=== PATIENT | female | born 2000 | race Caucasian/White ===

== ENCOUNTER → 2021-04-23 15:08 | Outpatient (CLI) | payer MEDICAID, SELFPAY ==
[2021-04-23 15:54] LABS: Absolute Lymphocyte Count 1.55 X10^3/uL (0.83-4.51); Absolute Neutrophil Count 2.4 X10^3/uL (2.0-7.7); Basophil# 0.03 X10^3/uL; Basophil% 0.7 % (0-1); Eosinophil# 0.02 X10^3/uL; Eosinophils% 0.5 % (0-5); Hemoglobin 13.5 g/dL (12.0-15.0); Lymphocyte # 1.55 X10^3/ul (0.83-4.51); Lymphocyte % 37.2 % (19-41); Mean Corp Hgb Conc 33.8 g/dL (32-36); Mean Corpuscular Hgb 30.8 pg (27.0-32.0); Mean Corpuscular Volume 91.1 fL (81-99); Mean Platelet Vol. 9.1 fl (6.2-12.0); Monocyte# 0.22 X10^3/uL; Monocyte% 5.3 % (0-10); NRBC Flagged by Analyzer 0 % (0-5); Neutrophil # 2.35 X10^3/uL (2.7-7.7); Neutrophil % 56.3 % (47-70); Platelet Count 283 K/mm3 (150-450); RBC Distribution Width CV 11.3 % (11.6-14.6); Red Blood Count 4.39 M/mm3 (4.2-5.4); White Blood Count 4.2 K/mm3 (4.4-11.0)
[2021-04-23 16:58] LABS: ALB/GLOB Ratio 1.3 RATIO (0.9-2.4); AST(SGOT) 17 U/L (15-37); Alanine Aminotransfer ALT/SGPT 13 U/L (13-56); Albumin, Serum 4.3 g/dL (3.2-5.0); Alkaline Phosphatase 45 U/L (45-117); Anion Gap 4 (5-15); BUN 12 mg/dL (7-18); BUN/Creat Ratio 18.7 RATIO (10-20); Chloride 106 mmol/L (98-107); Creatinine, Serum 0.64 mg/dL (0.55-1.02); EST Glomerular Filtration Rate 124 mL/min (>60); Est Glom Filt Rate - Afr Amer 150 mL/min (>60); Globulin 3.4 g/dL (2.2-4.2); Glucose 70 mg/dL (74-106); Iron 112 ug/dL (50-170); Iron Binding Capacity,Total 284 ug/dL (250-450); Lipase 120 U/L (73-393); PERCENT IRON SATURATION 39.4 % (15.0-55.0); Potassium 3.5 mmol/L (3.5-5.1); Protein, Total 7.7 g/dL (6.4-8.2); Sodium Level 138 mmol/L (136-145); Thyroid Stim Hormone (TSH) 0.72 uIU/mL (0.358-3.74)
[2021-04-23 20:14] LABS: Vitamin B12 512 pg/mL (211-911)
[2021-04-26 12:09] LABS: Vitamin D 1,25-Dihydroxy 42.1 pg/mL (19.9-79.3)
[2021-04-26 12:48] LABS: ANTINUCLEAR ANTIBODIES DIRECT Negative (Negative)
[2021-05-02 03:07] LABS: Endomysial Antibody IgA Negative (Negative); Immunoglobulin A 285 mg/dL (87-352); Lyme IgG P18 Ab Absent (.); Lyme IgG P23 Ab Absent (.); Lyme IgG P28 Ab Absent (.); Lyme IgG P30 Ab Absent (.); Lyme IgG P39 Ab Absent (.); Lyme IgG P41 Ab Absent (.); Lyme IgG P45 Ab Absent (.); Lyme IgG P58 Ab Absent (.); Lyme IgG P66 Ab Absent (.); Lyme IgG P93 Ab Absent (.); Lyme IgM P23 Ab Absent (.); Lyme IgM P39 Ab Absent (.); Lyme IgM P41 Ab Absent (.)
[2021-05-02 08:16] LABS: H. Pylori Antibody (IgG) 0.18 (0.00-0.79); Lyme IgG WB Interpretation Negative (.); Lyme IgM WB Interpretation Negative (.); t-Transglutaminase IgA <2 U/mL (0-3)
== END ==
PROVIDERS: PCP Internal Medicine; Referring Provider Nurse Practitioner Adult Health; Visit Provider Nurse Practitioner Adult Health
DX: R10.13 Epigastric pain (principal)
CPT/HCPCS: 36415; 80053; 82607; 82652; 82746; 82784; 83516; 83540; 83550; 83690; 84443; 85025; 86038; 86255; 86617; 86677

== ENCOUNTER 2021-05-22 11:53 | Day surgery (SDC) | payer MEDICAID, SELFPAY ==
--- NOTE | 2021-05-22 | IMM_PTH ---
PATIENT: VA DUENAS LOC: EN U#:[id number] AGE/SX: 20/F ROOM: RE05/22/[address]: Dr. Jerry Patel DO : 2000 BED: DIS: 05/22/2021 SPEC #: [id number] RECD: 05/24/21 13:18 STATUS: ERVIN REDesirae #: [id number] [place]: 05/22/21 00:[address]: Jerry Patel DEPT: IMMUNOHISTOCHEMISTRY RECD BY: Karyna Arriaza ENTERED: 05/24/21 13:19 SP TYPE: IMMUNO OTHR DR: Brielle Trejo MD Tissues: B - Gastric mucous membrane Procedures: P53 (initial) KI-67 (add) PHYSICIAN & INSTITUTION [place] [id number] SPECIMEN INFORMATION: Tissue Source: B ? GE junction biopsy Clinical Info: GERD, IBS Specimen Number: [id number] CPT code: 00724, 90415 METHODOLOGY: Deparaffinized sections of prefer/formalin-fixed tissue or PAP/DQ stained slides are incubated with monoclonal/polyclonal antibodies/oligonucleotide probes. Localization is made via biotin free immunoperoxidase method. Appropriate controls are performed and reacted as expected. Results on target cell population are indicated in the following table: RESULTS: ANTIBODY / CLONE RESULT Block B P53 (DO-7) negative Ki-67 (30-9) positive, very low These tests were developed and their performance characteristics determined by [facility]. They may not have been cleared or approved by the U.S. Food and Drug Administration. The FDA has determined that such clearance or approval is not necessary. The above immunohistochemical/dualISH markers are ordered and reviewed by the Pathologist. INTERPRETATION: B. GE junction, biopsy: Negative for dysplasia. EDUARDO:jesus manuel 05/25/2021
[2021-05-22 12:12] LABS: Internal QC Validated? YES +Cl - CLEAR BKGD; Pregnancy, Urine Negative Negative
[2021-05-22 12:20] VITALS: BP 98/63; PULSE 65; RESP 14; TEMP 37.2; O2SAT 100; BMI 19.1
[2021-05-22 12:25] VITALS: BP 97/72; BP 98/63; PULSE 66; RESP 16; O2SAT 99
[2021-05-22] MEDS: Lactated Ringers 1,000 ML 100 ML IV (12:33)
--- NOTE | 2021-05-22 13:00 | EGD_PTH ---
PATIENT: VA DUENAS LOC: EN U#:[id number] AGE/SX: 20/F ROOM: RE05/22/[address]: Dr. Jerry Patel DO : 2000 BED: DIS: 05/22/2021 SPEC #: [id number] RECD: 05/22/21 14:36 STATUS: ERVIN ADDY #: [id number] [place]: 05/22/21 13:[address]: Jerry Patel DEPT: SURGICAL PATHOLOGY RECD BY: Brittany Angulo ENTERED: 05/23/21 12:05 SP TYPE: EGD BIOPSY OT DR: Brielle Trejo MD Tissues: A - Duodenum, NOS B - Gastric mucous membrane Procedures: Special Stain Group II Surgery Specimen Level IV Alcian Blue/PAS (control) HEADER OPERATION: EGD ([facility]), PH probe PRE-OP DIAGNOSIS: GERD, IBS TISSUE SUBMITTED: A ? Duodenum biopsy, B ? GE junction biopsy MICROSCOPIC DIAGNOSIS A. Duodenum, biopsy: Fragments of duodenal mucosa, no pathologic diagnosis. B. GE junction, biopsy: Fragments of gastroesophageal mucosa with moderate chronic inflammation. 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 Negative for dysplasia. See comment. SJ:rg 05/24/2021 COMMENT B. Alcian blue/PAS stain with matched control is used in the evaluation of the specimen. Immunohistochemistry ([id number]) for P53 and Ki-67 will be performed and results will be reported separately. Case has been reviewed in consultation with Dr. Velez who concurs with the above diagnosis. IDC:AM MICROSCOPIC DESCRIPTION Slides are reviewed. GROSS DESCRIPTION A - Received in fixative is one container labeled with the patient's name and designated duodenum biopsy. The specimen consists of two irregular fragments of light downs soft tissue that in aggregate measure 0.7 x 0.3 x 0.1 cm. The specimen is totally submitted in one cassette. B - Received in fixative is one container labeled with the patient's name and designated GE junction. The specimen consists of two irregular fragments of light downs soft tissue that in aggregate measure 0.7 x 0.7 x 0.1 cm. The specimen is totally submitted in one cassette. / AM:jesus manuel 05/23/21 TC:3 CPT: 17822 x2, 23714
--- NOTE | 2021-05-22 13:11 | HP.PCM_ITS ---
HPI - General HPI Narrative VA DUENAS is a 20 F who presents [facility] [id number] [place] [address] OFFICE VISITDate of Service: 05/14/21 MR#:[id number]:[id number]: VA DUENASep #:[id number] Provider:Jerry Friend, DOAge/Sex: 20/F Location[facility].IStatus:Signed Intake Vital Signs 05/14/21 12:38 Height 5 ft 5 in Weight: 113 lb 6 oz BMI 18.8 Intake Visit Reasons: ACID REFLUX/REFERRAL F ENT HPI HPI Details: VA DUENAS is a 20 F who presents to the office today for worsening reflux disease. In September of 2020 she started having generalized abdominal pain, frequent headaches, fatigue, body aches, dry mouth, sore throat and hoarseness, brain fog/confusion. She also reports reports urgent diarrhea with lack of control 6-7 times since onset. She has not had any antibiotics. She denies any sick contacts. She is not having any diarrhea after starting the probiotic , but she is having really soft stools. She is tried to adjust to eating multiple meals a day instead of eating 1 or 2 big meals. She is concerned because she lost 30 pounds and weighs 110 pounds. However since changing her diet she has been able to maintain 110 pounds. She isalso having difficulty with frequent urination/urgency/vaginal discharge - needs referral for urologist. Has seen [employer] who diagnosed yeast infection, Rx'd fluconazole. ENT in February prescribed omperazole 40 mg QAM which did not help. Then amoxicillin with potassium for ten days - gave diarrhea but did not resolve symptoms. Samara Osorio prescribed pantoprazole 40mg QAM with a probiotic QAM - these are not helping either. Has changed diet to attempt to reduce symptoms but this has not made a change in symptoms. Acne has gotten worse and has attempted topical cream. She did have biochemical testing with a CBC, CMP, H. pylori and celiac antibody tests. All those tests were subsequently normal. ROS Const Constitutional: Positive for fatigue, headache(s), weakness and weight change (loss) Eyes Eyes: Positive for blurry vision, irritation and eye pain ENT ENT: Positive for ear or mastoid pain, nasal congestion, headache(s), difficulty swallowing, hoarseness and sore throat Cardio Cardiology: Positive for chest pain at rest, leg pain with exertion and shortness of breath Gastro GI: Positive for abdominal pain, bloating, change in bowel habits, constipation, heartburn, difficulty swallowing and nausea/dyspepsia Genitourinary-Female: Positive for urinary incontinence, urinary frequency, urinary urgency, abnormal vaginal bleeding and Vaginal Itching Musc Musculoskeletal: Positive for joint pain, back pain, muscle cramps, muscle weakness, numbness, tingling, leg pain at night and leg pain with exertion Skin Skin: Positive for dry skin and itchy eyes Neuro Neurology: Positive for weakness, headache(s), numbness and tingling Psych Psychiatric: Positive for anxiety, Positive for depression and Positive for inattentiveness Endo Endocrine: Positive for cold intolerance, fatigue, heat intolerance, increased thirst/drinking, increased urine leakage and weight change (loss) Aller/Imm Allergy/Immunologic: Positive for itchy eyes Joseph/Lymp Hematologic/Lymphatic: Positive for easy bruising Exam Const General: cooperative and comfortable Nutritional Appearance: average body habitus and well nourished [facility] Head: normal to inspection Ears: hearing grossly normal bilaterally Nose: external nose normal Face and sinus: normal facial exam Mouth: oral mucosae normal Throat: posterior oropharynx normal Eyes General: appearance normal, both eyes and all related structures Neck Neck: normal visual inspection Chest Chest palpation & inspection: normal inspection of the chest and normal palpation of entire chest wall Resp Effort & Inspection: normal respiratory effort Auscultation: Bilateral: Clear to Auscultation Cardio Palpation: normal PMI Rate: regular rate Rhythm: regular rhythm GI Inspection: normal to inspection Auscultation: normal bowel sounds Percussion: normal to percussion Palpation: no hepatosplenomegaly Skin General: no rashes or lesions noted Neuro General: patient alert Extrem General: normal to inspection Psych Affect: normal affect Assessment and Plan Assessment and Plan (1) GERD (gastroesophageal reflux disease): Status: Acute Plan - Dr. Jerry Patel DO: She will undergo upper endoscopy with Belle pH monitoring to see if this is truly reflux disease. She is still having symptoms on twice a day medicine. She will do the Belle on medicine. (2) IBS (irritable bowel syndrome): Status: Acute Plan - Dr. Jerry Friend, DO: I suspect that her symptoms are likely related to IBS with diarrhea. I will put her on a prescription probiotic and digestive enzyme. I also will give her Xifaxan 5 and 50 mg 3 times a day for 2 weeks. We will follow up after she undergoes upper endoscopy and hopefully resolve all of her GI symptoms so she can go back to school. Plan Details Other Medications: New: L. acidophilus-dig enz cmb 5 5-250 mg (Probiotic-Digestive Enzymes) 1 cap PO TIDWMEAL 120 caps 0RF This is an updated H&P from a previous office consultation. Nothing has changed since she was seen in the office [facility] Medical History (Updated 05/17/21 @ 13:32 by Katiuska Cheng) Alcohol use Anemia Anxiety Back pain Borderline personality disorder Chest pain Difficulty swallowing Easy bruising Former smoker Headache, migraine Heartburn History of psychiatric care Marijuana use Seasonal allergies Shortness of breath on exertion Syncope Wears glasses Home Medications L. acidophilus 5 mg-digestive enzymes combo no.5 250 mg capsule 1 cap PO TIDWMEAL #120 cap 05/14/21 [Rx Last Taken 05/21/21] pantoprazole 40 mg tablet,delayed release 40 mg PO DAILY 05/15/21 [History Last Taken 05/22/21 09:20] digestive enzymes 1 cap PO TID 05/17/21 [History Last Taken 05/21/21] metronidazole 1 applic TOPICAL DAILY 05/17/21 [History Last Taken 05/21/21] miconazole nitrate [Monistat 3] 1 appful VAGINAL DAILY 05/17/21 [History Last Taken 05/21/21] Allergy/AdvReac Type Severity Reaction Status Date / Time No Known Allergies Allergy Unverified 05/17/21 13:23 Family History (Updated 05/15/21 @ 09:08 by Mary Bonilla) Other Anemia Anxiety Arthritis COPD (chronic obstructive pulmonary disease) Depression Diabetes Hyperlipemia Hypertension Seizures Social History (Updated 05/15/21 @ 09:09 by Mary Bonilla) Smoking Status: Former smoker Electronic Cigarette Use: with nicotine alcohol intake: never substance use type: does not use what type of physical activity do you participate in: walking frequency: daily Vital Signs Vital Signs Vital Signs: 05/22/21 12:20 Temperature 99.0 F Temperature Source Temporal Pulse Rate 65 Respiratory Rate 14 Respiratory Pattern Normal Blood Pressure 98/63 Blood Pressure Mean 74 Blood Pressure Source Monitor Blood Pressure Position Sitting Blood Pressure Location Right Arm Pulse Ox 100 Oxygen Delivery Method Room Air Weight Weight: 114 lb 13.773 oz Body Mass Index (BMI) 19.1 Results Lab / Micro Data Labs: Laboratory Results - last 24 hr 05/22/21 12:04: Urine Test Negative Micro: Microbiology 05/21/21 13:10 Interface Orders SARS-CoV-2 Antigen (Rapid) - Final
[2021-05-22 13:34] VITALS: BP 101/73; BP 98/63; PULSE 65; RESP 16; TEMP 36.1; O2SAT 100
--- NOTE | 2021-05-22 13:36 | OP.EGD_ITS ---
Patient Name: Edelmira Redd Procedure Date: 05/22/2021 1:08 PM Date of : 2000 Age: 20 Procedure: Upper GI endoscopy Indications: Esophageal reflux Providers: Jerry Patel DO Referring MD: Jerry Patel DO Medicines: Monitored Anesthesia Care Patient Profile: This is a 20 year old female. Refer to note in patient chart for documentation of history and physical. Patient has symptoms. Complications: No immediate complications. Procedure: Pre-Anesthesia Assessment: - Prior to the procedure, a History and Physical was performed, and patient medications and allergies were reviewed. The patient is competent. The risks and benefits of the procedure and the sedation options and risks were discussed with the patient. All questions were answered and informed consent was obtained. Patient identification and proposed procedure were verified by the physician in the pre-procedure area. Mental Status Examination: alert and oriented. Airway Examination: normal oropharyngeal airway and neck mobility. Respiratory Examination: clear to auscultation. CV Examination: normal. Prophylactic Antibiotics: The patient does not require prophylactic antibiotics. Prior Anticoagulants: The patient has taken no previous anticoagulant or antiplatelet agents. ASA Grade Assessment: II - A patient with mild systemic disease. After reviewing the risks and benefits, the patient was deemed in satisfactory condition to undergo the procedure. The anesthesia plan was to use moderate sedation / analgesia (conscious sedation). Immediately prior to administration of medications, the patient was re-assessed for adequacy to receive sedatives. The heart rate, respiratory rate, oxygen saturations, blood pressure, adequacy of pulmonary ventilation, and response to care were monitored throughout the procedure. The physical status of the patient was re-assessed after the procedure. After obtaining informed consent, the endoscope was passed under direct vision. Throughout the procedure, the patient's blood pressure, pulse, and oxygen saturations were monitored continuously. The Endoscope was introduced through the mouth, and advanced to the second part of duodenum. The upper GI endoscopy was accomplished without difficulty. The patient tolerated the procedure well. Moderate Sedation: Moderate (conscious) sedation was administered by the endoscopy nurse and supervised by the endoscopist. The patient's oxygen saturation, heart rate, blood pressure and response to care were monitored. Scope In: 1:17:51 PM Scope Out: 1:25:54 PM Total Procedure Duration Time 0 hours 8 minutes 3 seconds Findings: The examined esophagus was normal. The entire examined stomach was normal. Patchy mild inflammation characterized by congestion (edema) was found in the duodenal bulb. Biopsies were taken with a cold forceps for histology. Verification of patient identification for the specimen was done. Estimated blood loss was minimal. Impression: - Normal esophagus. - Normal stomach. - Duodenitis. Biopsied. - Normal esophagus. Biopsied. - Non-erosive esophageal reflux (NERD) disease present. - Successful completion of the LAU pH Capsule placement. - Normal stomach. - High likelihood of duodenitis. Biopsied. Recommendation: - Discharge patient to home. - Resume previous diet. - Continue present medications. - Await pathology results. - Repeat upper endoscopy in 1 year for surveillance. - Return to GI office in 2 weeks. Procedure Code(s): --- Professional --- 51027, Esophagogastroduodenoscopy, flexible, transoral; with biopsy, single or multiple CPT copyright 2017 [employer]. All rights reserved. The codes documented in this report are preliminary and upon inside sales account manager review may be revised to meet current compliance requirements. Jerry Patel DO 05/22/2021 1:35:44 PM This report has been signed electronically. Number of Addenda: 1 Note Initiated On: 05/22/2021 1:08 PM Addendum Number: 1 Addendum Date: 04/25/2022 4:07:44 PM MAC was used instead of moderate sedation for this patient. Jerry Patel DO 04/25/2022 4:07:49 PM This report has been signed electronically.
--- NOTE | 2021-05-22 13:36 | OP.CCLET_ITS ---
04/25/2022 Brielle Trejo Md Re : Upper GI endoscopy procedure for Edelmira Redd Dear Maya This procedure was performed on Saturday, May 22, 2021. My impressions and recommendations are as follows: Impressions : - Normal esophagus. - Normal stomach. - Duodenitis. Biopsied. - Normal esophagus. Biopsied. - Non-erosive esophageal reflux (NERD) disease present. - Successful completion of the LAU pH Capsule placement. - Normal stomach. - High likelihood of duodenitis. Biopsied. Recommendations : - Discharge patient to home. - Resume previous diet. - Continue present medications. - Await pathology results. - Repeat upper endoscopy in 1 year for surveillance. - Return to GI office in 2 weeks. My findings are described in the full procedure note, which is enclosed. If I can be of further assistance, please feel free to contact me at . Sincerely, Jerry Patel, 05/22/2021 1:35:44 PM This report has been signed electronically.
[2021-05-22 13:40] VITALS: BP 98/63; BP 99/78; PULSE 59; RESP 16; O2SAT 99
[2021-05-22 13:57] VITALS: BP 98/63; BP 99/69; PULSE 56; RESP 16; TEMP 36.1; O2SAT 99
[2021-05-22 14:20] VITALS: BP 98/63
== END 2021-05-22 14:22 ==
LOC: EN 11:54 → AC 11:55
PROVIDERS: Anesthesiology; PCP Internal Medicine; Referring Provider Internal Medicine Gastroenterology; Visit Provider Internal Medicine Gastroenterology
PROC: 0DJ08ZZ Inspection of Upper Intestinal Tract, Via Natural or Artificial Opening Endoscopic (ICD-10-PCS; CPT 43235; principal; 2021-05-22 12:55)
DX: K22.70 Barrett's esophagus without dysplasia (principal); K21.9 Gastro-esophageal reflux disease without esophagitis; F12.11 Cannabis abuse, in remission; R63.4 Abnormal weight loss; Z68.1 Body mass index [BMI] 19.9 or less, adult; Z87.891 Personal history of nicotine dependence
CPT/HCPCS: 43239; 81025; 87426; 88305; 88313; 88341; 88342; J7120; J2405

== ENCOUNTER → 2021-06-04 12:37 | Outpatient (CLI) | payer MEDICAID, SELFPAY ==
--- NOTE | 2021-06-04 12:38 | NM_ITS ---
CLINICAL: 20-year-old female with reported history of abdominal pain. SEMI-SOLID PHASE 99m Tc SULFUR COLLOID GASTRIC EMPTYING STUDY COMPARISON: None available FINDINGS: The patient was administered 1.2 mCi of 99m Tc sulfur colloid mixed with oatmeal and consumed per os. Image acquisitions in the anterior-posterior projections for a total of 60 minutes. There is prompt visualization of the stomach. There is no gastroesophageal reflux identified. The T ? emptying was calculated to be 44.25 minutes, (Normal: 12-56 minutes). NM/Gastric Emptying Study IMPRESSION: 1. NORMAL 99m Tc sulfur colloid semi-solid phase (oatmeal) gastric emptying imaging examination. A. There is normal and preserved semi-solid phase gastric emptying compared to normal controls with maintained first order kinetics throughout all components of the examination. (Rubens et al, J Nucl Med Tech 38: 186, 2010). Electronically Signed: Nish Caceres DO at 20:54 EDT Tel , Service support ,
== END ==
PROVIDERS: PCP Internal Medicine; Referring Provider Internal Medicine Gastroenterology; Visit Provider Internal Medicine Gastroenterology
DX: K22.70 Barrett's esophagus without dysplasia (principal)
CPT/HCPCS: 78264; A9541

== ENCOUNTER → 2021-06-05 09:57 | Outpatient (CLI) | payer MEDICAID, SELFPAY ==
[2021-06-05 11:08] LABS: CRP < 2.90 mg/L (0.0-3.0); LDH 148 U/L (84-246)
[2021-06-08 05:07] LABS: Alternaria alternata <0.10 kU/L (Class 0); Bermuda Grass <0.10 kU/L (Class 0); Bluegrass, Kentucky <0.10 kU/L (Class 0); Cat Hair/Dander, Standard <0.10 kU/L (Class 0); Clam <0.10 kU/L (Class 0); Codfish <0.10 kU/L (Class 0); Corn <0.10 kU/L (Class 0); D farinae Mite <0.10 kU/L (Class 0); D pteronyssinus <0.10 kU/L (Class 0); Dog Epithelia <0.10 kU/L (Class 0); Egg, White 0.24 kU/L (Class 0/I); Elm, American White <0.10 kU/L (Class 0); Milk (Cow) 0.84 kU/L (Class II); Mouse Urine <0.10 kU/L (Class 0); Oak, White <0.10 kU/L (Class 0); Peanut <0.10 kU/L (Class 0); Plantain, English <0.10 kU/L (Class 0); Ragweed, Short/Common <0.10 kU/L (Class 0); SCALLOP <0.10 kU/L (Class 0); SESAME SEED <0.10 kU/L (Class 0); Shrimp <0.10 kU/L (Class 0); Soybean <0.10 kU/L (Class 0); Walnut, (Food) <0.10 kU/L (Class 0); Wheat <0.10 kU/L (Class 0)
[2021-06-08 09:13] LABS: ANTINUCLEAR ANTIBODIES DIRECT Negative (Negative); Anti-Histone Abs 0.4 Units (0.0-0.9)
[2021-06-09 01:06] LABS: Cytoplasmic Ab (C-ANCA) <1:20 titer (Neg:<1:20); Immunoglobulin A 284 mg/dL (87-352); Immunoglobulin E 54 IU/mL (6-495); Immunoglobulin G 909 mg/dL (586-1602); Immunoglobulin M 156 mg/dL (26-217)
[2021-06-09 08:04] LABS: Perinuclear Ab (P-ANCA) <1:20 titer (Neg:<1:20)
== END ==
PROVIDERS: PCP Internal Medicine; Referring Provider Internal Medicine Gastroenterology; Visit Provider Internal Medicine Gastroenterology
DX: K58.9 Irritable bowel syndrome, unspecified (principal)
CPT/HCPCS: 82784; 82785; 83615; 86003; 86038; 86140; 86225; 86235; 86256

== ENCOUNTER → 2021-06-09 11:12 | Outpatient (CLI) | payer MEDICAID, SELFPAY ==
[2021-06-12 16:09] LABS: Anti-Centromere B Ab <0.2 AI (0.0-0.9); Anti-Chromatin <0.2 AI (0.0-0.9); Anti-Jo <0.2 AI (0.0-0.9); Anti-Scleroderma-70 AB <0.2 AI (0.0-0.9); RNP Ab <0.2 AI (0.0-0.9); SJOGREN'S Anti-SS-A test < 0.2 AI (0.0-0.9); SJOGREN'S Anti-SS-B test 0.4 AI (0.0-0.9); Smith Ab <0.2 AI (0.0-0.9)
[2021-06-12 17:07] LABS: Anti-dsDNA Ab <1 IU/mL (0-9)
== END ==
PROVIDERS: PCP Internal Medicine; Referring Provider Internal Medicine Gastroenterology; Visit Provider Internal Medicine Gastroenterology
DX: R63.4 Abnormal weight loss (principal)
CPT/HCPCS: 36415; 86225; 86235

== ENCOUNTER → 2021-06-14 14:36 | Outpatient (CLI) | payer MEDICAID, SELFPAY ==
--- NOTE | 2021-06-14 14:46 | US_ITS ---
STUDY: RENAL ULTRASOUND - COMPLETE REASON FOR EXAM: Female, 20 years old. Low back pain, urinary frequency TECHNIQUE: Ultrasound evaluation of the kidneys was performed with real-time and static antonio-scale imaging. COMPARISON: None. FINDINGS: RIGHT KIDNEY: Normal location of the right kidney, which is normal in size. The right kidney measures 10.5 x 4.3 x 4.1 cm. There is a normal cortex of the right kidney. The renal cortex measures 1.2 cm. There is no right renal mass or cyst. There are no right renal calculi. There is no right hydronephrosis. DISTAL RIGHT URETER: There is non-visualization of the distal right ureter. There is no demonstrated right ureterovesical junction calculus. There is a visualized right ureteral jet. LEFT KIDNEY: Normal location of the left kidney, which is normal in size. The left kidney measures 10.4 x 4.3 x 5.4 cm. There is a normal cortex of the left kidney. The renal cortex measures 1.5 cm. There is no left renal mass or cyst. There are no left renal calculi. There is no left hydronephrosis. DISTAL LEFT URETER: There is non-visualization of the distal left ureter. There is no demonstrated left ureterovesical junction calculus. There is a visualized left ureteral jet. AORTA: There is no elongation or tortuosity of the abdominal aorta. I.V.C.: The IVC is patent. BLADDER: The distended urinary bladder has a volume of 654 ml. The empty urinary bladder has a volume of less than 10 ml. There is a normal wall thickness of the distended urinary bladder. There is no demonstrated mass within the urinary bladder. There are no demonstrated bladder calculi. US/Kidney and Bladder IMPRESSION: Normal ultrasound of the kidneys and urinary bladder. Electronically Signed: Hermes Moctezuma MD at 16:43 EDT , Service support ,
== END ==
PROVIDERS: PCP Internal Medicine; Visit Provider Urology
DX: N39.41 Urge incontinence (principal); M54.50 Low back pain, unspecified
CPT/HCPCS: 76770

== ENCOUNTER → 2021-08-16 12:33 | Outpatient (CLI) | payer MEDICAID, SELFPAY ==
[2021-08-16 15:46] LABS: Hemoglobin A1c 4.8 % (3.8-5.6)
== END ==
PROVIDERS: PCP Internal Medicine; Referring Provider Internal Medicine Gastroenterology; Visit Provider Internal Medicine Gastroenterology
DX: G43.909 Migraine, unspecified, not intractable, without status migrainosus (principal)
CPT/HCPCS: 36415; 83036

== ENCOUNTER 2021-09-19 07:13 | Outpatient (CLI) | payer MEDICAID, SELFPAY ==
--- NOTE | 2021-09-19 07:15 | MRI_ITS ---
STUDY: MRI ABDOMEN WITH AND WITHOUT CONTRAST REASON FOR EXAM: Female, 21 years old. MG TECHNIQUE: Standardized fat and water weighted pulse sequences were obtained in all 3 orthogonal planes post contrast administration. dotarem 13ml IV was administered for the contrast portion of the examination. COMPARISON: None. FINDINGS: The visualized lung bases are unremarkable. The visualized portions of the heart are within normal limits. Normal liver. Normal gallbladder and extrahepatic biliary system. Normal spleen. Normal pancreas. Normal bilateral adrenal glands. Normal right kidney. Normal left kidney. Normal visualized stomach. Normal small intestine. Normal colon. Normal abdominal aorta. Normal inferior vena cava. Normal retroperitoneum. Normal abdominal wall. Normal osseous structures. MRI/MRI Abd WITH and W/O Contrast IMPRESSION: Normal unenhanced and enhanced MRI of the abdomen. Electronically Signed: Nikhil Landry MD at 17:03 [facility] ,
== END 2021-09-19 23:59 | disposition short-term general hospital (02) ==
LOC: MRI 07:15
PROVIDERS: PCP Internal Medicine; Referring Provider Internal Medicine Gastroenterology; Visit Provider Internal Medicine Gastroenterology
DX: G47.00 Insomnia, unspecified (principal); D49.89 Neoplasm of unspecified behavior of other specified sites
CPT/HCPCS: 74183; A9575

== ENCOUNTER 2021-10-18 09:23 | Day surgery (SDC) | payer MEDICAID, SELFPAY ==
[2021-10-18 10:08] VITALS: BP 143/71; PULSE 94; TEMP 36.6; O2SAT 98
== END 2021-10-18 23:59 | disposition home or self-care (01) ==
PROVIDERS: PCP Internal Medicine; Referring Provider Internal Medicine Gastroenterology; Visit Provider Internal Medicine Gastroenterology
PROC: F00ZJWZ Instrumental Swallowing and Oral Function Assessment using Swallowing Equipment (ICD-10-PCS; CPT 43235; principal; 2021-10-18 13:55)
DX: K22.70 Barrett's esophagus without dysplasia (principal); R10.9 Unspecified abdominal pain
CPT/HCPCS: J2405; 91010

== ENCOUNTER 2021-11-07 08:23 | Outpatient (CLI) | payer MEDICAID, SELFPAY ==
--- NOTE | 2021-11-07 08:30 | RAD_ITS ---
INDICATION: K21.9 - Gastro-esophageal reflux disease without esophagitis EXAMINATION/TECHNIQUE: Barium oral contrast and crystals was administered orally to the patient. Total Fluoroscopic Time: 1 minute 2 seconds AND number of Fluoroscopic Images: 21 OR Radiation dosage index: COMPARISON: None. FINDINGS: Fluoroscopic images of the esophagus through the proximal duodenum were obtained. No masses or strictures are identified. The mucosal pattern is unremarkable. Contrast passes normally into the duodenum and jejunum. There is normal motility. Mild reflux of the gastroesophageal junction. RAD/Upper GI w/BA Swallow IMPRESSION: Mild reflux at the gastroesophageal junction. Otherwise, the remainder of the exam is unremarkable. Electronically Signed: Wayne Candelaria, at 12:00 EDT ,
== END 2021-11-07 23:59 | disposition home or self-care (01) ==
LOC: RAD 08:25
PROVIDERS: PCP Internal Medicine; Referring Provider Surgery; Visit Provider Surgery
DX: K21.9 Gastro-esophageal reflux disease without esophagitis (principal); R10.9 Unspecified abdominal pain; R63.4 Abnormal weight loss; K22.70 Barrett's esophagus without dysplasia
CPT/HCPCS: 74246

== ENCOUNTER 2021-12-13 11:50 | Outpatient (CLI) | payer MEDICAID, SELFPAY ==
[2021-12-13 13:59] LABS: Absolute Neutrophil Count 2.5 X10^3/uL (2.0-7.7); Basophil# 0.03 X10^3/uL; Basophil% 0.7 % (0-1); Eosinophil# 0.19 X10^3/uL; Eosinophils% 4.4 % (0-5); Hematocrit 41.3 % (37-47); Hemoglobin 13.7 g/dL (12.0-15.0); Mean Corp Hgb Conc 33.2 g/dL (32-36); Mean Corpuscular Hgb 30.6 pg (27.0-32.0); Mean Corpuscular Volume 92.2 fL (81-99); Mean Platelet Vol. 9.4 fl (6.2-12.0); Monocyte# 0.35 X10^3/uL; Monocyte% 8.2 % (0-10); NRBC Flagged by Analyzer 0 % (0-5); Neutrophil # 2.49 X10^3/uL (2.7-7.7); Neutrophil % 58.2 % (47-70); Platelet Count 349 K/mm3 (150-450); RBC Distribution Width SD 41.1 fl (35.1-43.9); Red Blood Count 4.48 M/mm3 (4.2-5.4); White Blood Count 4.3 K/mm3 (4.4-11.0)
[2021-12-13 14:20] LABS: ALB/GLOB Ratio 1.1 RATIO (0.9-2.4); AST(SGOT) 15 U/L (15-37); Alanine Aminotransfer ALT/SGPT 13 U/L (13-56); Alkaline Phosphatase 60 U/L (45-117); Anion Gap 5 (5-15); BUN 12 mg/dL (7-18); BUN/Creat Ratio 18.8 RATIO (10-20); Calcium,Total 8.9 mg/dL (8.5-10.1); Chloride 110 mmol/L (98-107); Creatinine, Serum 0.64 mg/dL (0.55-1.02); EST Glomerular Filtration Rate 123 mL/min (>60); Est Glom Filt Rate - Afr Amer 149 mL/min (>60); Globulin 3.7 g/dL (2.2-4.2); Glucose 91 mg/dL (74-106); Potassium 4.2 mmol/L (3.5-5.1); Protein, Total 7.7 g/dL (6.4-8.2); Sodium Level 139 mmol/L (136-145); Thyroid Stim Hormone (TSH) 1.31 uIU/mL (0.358-3.74)
[2021-12-13 14:41] LABS: HIV - WCH Non-Reactive (Nonreactive); Syphilis Antibodies Non-reactive
[2021-12-17 22:06] LABS: Chlamydia By Nucleic Acid AMP Negative (Negative)
[2021-12-17 22:10] LABS: Gonococcus By Nucleic Acid AMP Negative (Negative)
== END 2021-12-13 23:59 | disposition home or self-care (01) ==
PROVIDERS: PCP Internal Medicine; Referring Provider Physician Assistant; Visit Provider Physician Assistant
DX: R53.82 Chronic fatigue, unspecified (principal); F60.3 Borderline personality disorder; K21.9 Gastro-esophageal reflux disease without esophagitis; G43.909 Migraine, unspecified, not intractable, without status migrainosus; K58.9 Irritable bowel syndrome, unspecified; Z13.29 Encounter for screening for other suspected endocrine disorder; Z11.3 Encounter for screening for infections with a predominantly sexual mode of transmission
CPT/HCPCS: 36415; 80053; 84443; 85025; 86703; 86780; 87491; 87591